=== PATIENT | male | born 1935 | race Caucasian/White ===

== ENCOUNTER 2016-05-13 08:30 | Inpatient (IN) | payer MEDICARE ==
[~2016-05-13] VITALS: Ht 170.2 cm; Wt 78.5 kg
[2016-05-13 09:27] LABS: ALBUMIN 2.3 g/dL (3.4-5.0); ALKALINE PHOSPHATASE 66 U/L (46-116); ALT (SGPT) 18 U/L (10-68); BILIRUBIN - TOTAL 1.05 mg/dL (0.2-1.3); CALC OSMOLALITY 275 mosm/kg (275-300); CALCIUM 8.6 mg/dL (8.5-10.1); CARBON DIOXIDE 19.6 mmol/L (21.0-32.0); CHLORIDE - SERUM 101 mmol/L (98-107); CREATININE - SERUM 1.5 mg/dL (0.6-1.3); GLUCOSE 128 mg/dL (74-106); POTASSIUM - SERUM 4.4 mmol/L (3.5-5.1); PROTEIN - SERUM 6.4 g/dL (6.4-8.2); SODIUM 132 mmol/L (136-145); UREA NITROGEN 39 mg/dL (7-18); eGFR NON AFRICAN AMERICAN 48 mL/min (90-120)
[2016-05-13 09:30] LABS: HEMOGLOBIN 13.3 g/dL (13.5-17.5); MCH 28.1 pg (26.0-34.0); MCHC 33.3 g/dL (31.0-37.0); MCV 84.6 fL (80.0-100.0); MEAN PLATELET VOLUME 9.4 fL (7.4-10.4); PLATELET COUNT 224 10x3/uL (130-400); RBC 4.73 10x6/uL (4.20-6.10); RDW 15.5 % (11.5-14.5); WBC 24.5 10x3/uL (4.8-10.8)
[2016-05-13 09:33] LABS: APPEARANCE CLEAR (CLEAR); BILIRUBIN NEGATIVE (NEGATIVE); COLOR YELLOW (YELLOW); GLUCOSE NEGATIVE (NEGATIVE); KETONE SMALL mg/dL (NEGATIVE); LEUKOCYTE ESTERASE NEGATIVE (NEGATIVE); NITRITE NEGATIVE (NEGATIVE); PROTEIN NEGATIVE (NEGATIVE); UROBILINOGEN NORMAL (NORMAL)
[2016-05-13 09:41] LABS: LYMPHOCYTES 4 % (15-50); MONOCYTES 16 % (2-11); NEUTROPHILS 77 % (40-80); PLATELET ESTIMATE NORMAL
[2016-05-13 09:47] LABS: CREATINE KINASE 247 UL (21-232); PRO BNP 9786 pg/mL (0-450)
[2016-05-13 09:52] LABS: TROPONIN-I 0.386 ng/mL (0.000-0.060)
[2016-05-13 09:53] LABS: CKMB 3.3 U/L (0.0-3.6)
--- NOTE | 2016-05-13 12:00 | NUR ---
PATIENT RECEIVED TO FLOOR FROM ER VIA STRETCHER. TRANSFERRED SELF BED. POSITIONED FOR COMFORT. FAMILY AT BEDSIDE. ORIENTED TO ROOM. RT AT BEDSIDE TO PLACE PATIENT ON BIPAP ORDERED. SIDE RAILS UP X1. BED IN LOW POSITION. CALL LIGHT IN REACH.
[2016-05-13] MEDS ORDERED: PREDNISONE10 MG PO (12:02)
[2016-05-13] MEDS ORDERED: OMEPRAZOLE40 MG PO (12:02)
[2016-05-13] MEDS ORDERED: KLOR-CON M2020 MEQ PO (12:02)
[2016-05-13] MEDS ORDERED: VITAMIN D5000 UNIT PO (12:03)
[2016-05-13] MEDS ORDERED: MAG-OX 400 MG400 MG PO (12:03)
[2016-05-13] MEDS ORDERED: BAYER CHEWABLE81 MG PO (12:03)
[2016-05-13] MEDS ORDERED: MUCUS RELIEF400 MG PO (12:03)
[2016-05-13] MEDS ORDERED: AMOXICILLIN500 M1 PO (12:05)
--- NOTE | 2016-05-13 12:33 | NUR ---
PATIENT ALERT IN BED. NO SIGNS OF DISTRESS NOTED. BIPAP IN USE. FAMILY AT BEDSIDE. IVF AND IV ABX INITIATED PER ORDER. IV TO LEFT WRIST PATENT. FLUSHES EASY. NO REDNESS OR INFLAMMATION NOTED TO SITE.
[2016-05-13 13:32] VITALS: BP 112/60; BMI 27.1
[2016-05-13 13:40] VITALS: BP 112/60
[2016-05-13] MEDS ORDERED: SYNTHROID PO (13:41)
--- NOTE | 2016-05-13 14:32 | NUR ---
ALERT IN BED. NO SIGNS OF DISTRESS NOTED. FAMILY PRESENT. SIDE RAILS UP X2. BED IN LOW POSITION. CALL LIGHT IN REACH.
[2016-05-13 16:07] VITALS: BP 128/70
[2016-05-13 16:07] LABS: CREATINE KINASE 247 UL (21-232)
[2016-05-13 16:11] LABS: CKMB 4.1 U/L (0.0-3.6)
--- NOTE | 2016-05-13 17:57 | NUR ---
PATIENT ALERT IN [place] POSITION VISITING WITH FAMILY. NO SIGNS OF DISTRESS NOTED. BIPAP IN PLACED. SIDE RAILS UP X1. BED IN LOW POSITION. CALL LIGHT IN REACH.
[2016-05-13 23:00] VITALS: BP 102/55
--- NOTE | 2016-05-14 04:20 | NUR ---
AWAKE AT THIS TIME. PT LYING SUPINE IN HIGH WILKES'S POSTION WITH BI-PAP ON. DENIES NEEDS, CALL LIGHT IN REACH. WILL CONTINUE WITH PLAN OF CARE.
--- NOTE | 2016-05-14 07:36 | NUR ---
AWAKE ALERT COLOR ADQ SKIN WARM AND DRY BI-PAP IN PLACE AT PRESENT HOB UP FOR COMFORT STATES HE FEELS BETT TODAY IV CONT AT 50CC/HR/IVAC/LDH.
[2016-05-14 07:46] LABS: ANION GAP 14.4 mmol/L (8-16); BASOPHILS 0.1 % (0.0-2.0); CALCIUM 8.5 mg/dL (8.5-10.1); CREATININE - SERUM 1.6 mg/dL (0.6-1.3); EOSINOPHILS 0 % (0-7); HEMATOCRIT 38.8 % (42.0-54.0); HEMOGLOBIN 12.7 g/dL (13.5-17.5); IMMATURE GRANULOCYTES 0.5 % (0-5); LYMPHOCYTES 2.4 % (15-50); MCH 27.5 pg (26.0-34.0); MCHC 32.7 g/dL (31.0-37.0); MEAN PLATELET VOLUME 9.7 fL (7.4-10.4); MONOCYTES 3.4 % (2-11); NEUTROPHILS 93.6 % (40-80); PLATELET COUNT 254 10x3/uL (130-400); POTASSIUM - SERUM 3.4 mmol/L (3.5-5.1); RBC 4.62 10x6/uL (4.20-6.10); RDW 15.5 % (11.5-14.5); WBC 22.3 10x3/uL (4.8-10.8)
[2016-05-14 08:21] VITALS: BP 111/62
--- NOTE | 2016-05-14 08:33 | HP ---
PATIENT: TONI CABRERA MEDICAL RECORD: [id number] ACCOUNT: [id number] LOCATION:D.MS [id number] : 33 ADMISSION DATE: 05/13/16 HISTORY AND PHYSICAL EXAMINATION DATE OF ADMISSION: 05/13/2016 CHIEF COMPLAINT: Shortness of breath, increased fatigue, and lethargy. HISTORY OF PRESENT ILLNESS: The patient is an 80-year-old gentleman with a longstanding history of COPD. The patient has coronary artery bypass graft approximately 5 years ago as well. For over the past several days, the patient has had increasing shortness of breath. He has had increased fatigue, presents to the Emergency Room via EMS for shortness of breath. PAST MEDICAL HISTORY: Significant that he has had a history of having COPD. He has also had coronary artery bypass grafting. The patient had a history of having hyperlipidemia, hypothyroidism, dependent edema and psoriasis. FAMILY HISTORY: Mother and father both at 57 years of age. Father of heart attack. Mother of lung cancer. SOCIAL HISTORY: The patient was born and raised in [facility]. He is currently . He has worked at a [employer] for over 37 years. He is currently retired. ALLERGIES: CODEINE WELL BENADRYL. MEDICATIONS: Included ____ p.o. t.i.d. for sinus infection given by Dr. Kim last week, aspirin 81 mg once a day, levothyroxine 50 mcg once a day, omeprazole 40 mg once a day, KCl 20 mEq 1 p.o. t.i.d., prednisone 10 mg 1 p.o. every day, ranitidine 300 mg 1 p.o. every day, vitamin D3 of 5000 international units once a day. REVIEW OF SYSTEMS: CONSTITUTIONAL: He denies any headaches, seizures, or syncope. Denies change in visual or auditory acuity. PULMONARY: He has increasing shortness of breath with some sputum production. CARDIOVASCULAR: He has had no chest pain, palpitation, PND or orthopnea. GASTROINTESTINAL: No chronic nausea, vomiting, melena or hematochezia. GENITOURINARY: No urgency, frequency, or dysuria. PHYSICAL EXAMINATION: GENERAL: A very ill male. VITAL SIGNS: Temperature is 97, his pulse 110, respirations were 40, his blood pressure is 142/72, his O2 sat was 88%. HEENT: His head is normocephalic. No lesions. Ears: TMs clear. Eyes: Pupils equal, round and reactive to light. His extraocular movements are intact. His nasal cavity, oral cavity and oropharynx clear. NECK: Supple. There is no adenopathy. HEART: Slightly tachycardic. LUNGS: He has decreased breath sounds in all montoya. No rales, rhonchi or wheezes can be appreciated. ABDOMEN: Soft, bowel sounds positive. LOWER EXTREMITIES: Had no edema. HISTORY AND PHYSICAL [id number] MERGED WITH [facility] DATA: The patient had a chest x-ray showing possible bilateral infiltrates. He had an EKG. EKG showed sinus tachycardia, occasional PVC, nonspecific ST-T wave changes were noted. His white count was elevated at 24.5. His hemoglobin was 13.3, hematocrit 40, and platelets were 224. Urinalysis is unremarkable. Glucose 128, BUN is 39, creatinine is 1.1. His sodium is 132, potassium 4.4, chloride is 101, CO2 is 19.6. His liver function unremarkable. The patient had influenza A and B, which were negative. Arterial blood gas showed pH 7.463, pCO2 is 24.7, his pO2 is 74, bicarbonate was 17, base excess -4.3. Troponin is slightly elevated at 0.386. ProBNP was elevated at 9786. CK was 247. ASSESSMENT: Shortness of breath, chronic obstructive pulmonary disease exacerbation, pneumonia, and history of coronary artery disease. PLAN: The patient is a DNR. He will be continued on BiPAP. Pulmonary consultation as well as cardiology consultation will be obtained. The patient will be placed on appropriate antibiotics as well as O2 supplementation and updraft therapy. TRANSINT:[id number] Voice Confirmation ID: [id number] DOCUMENT ID: [id number] CLIFF SANDHU MD at 0833 CC: [id number] DICTATION DATE: 05/13/16 1029 CABLE CUTTER AND SWAGER: 05/13/16 1318 [place] [address]
--- NOTE | 2016-05-14 09:15 | NUR ---
MEDS GIVEN ORDERED SHANNON WELL AT BEDSIDE.
[2016-05-14] MEDS ORDERED: SYNTHROID50 MCG PO (10:10)
--- NOTE | 2016-05-14 11:44 | NUR ---
AT [facility] ENIES ANY NEEDS AT THIS TIME.
[2016-05-14 12:45] VITALS: BP 125/69
--- NOTE | 2016-05-14 14:04 | NUR ---
Patient Name: TONI CABRERA Admission Status: ER Accout number: [id number] Admission Date: 05-13-2016 : 1935 Admission Diagnosis: Attending: FRANKLIN Current LOS: 1 Anticipated DC Date: 05-17-2016 Planned Disposition: Home Primary Insurance: MEDICARE A & B Discharge Planning Comments: CM MET WITH PATIENT REGARDING D/C NEEDS AND PLANS. PATIENT STATED HE LIVES WITH HIS (LISETTE) AND SHE WILL TRANSPORT HIM HOME AT DISCHARGE. PATIENT STATED HE HAS 3 STEPS W/RAILS TO ENTER HOME AND NO STAIRS ONCE INSIDE. PATIENT STATED HE IS INDEPENDENT WITH HIS CARE AND HAS A WALKER, SHOWER CHAIR, OXYGEN, AND NEBULIZER IF NEEDED AT HOME. PATIENTS PCP IS DR. WALDRON AND PHARMACY IS [facility]. PATIENT DOES NOT WANT HOME HEALTH AT THIS TIME. CM WILL CONTINUE TO FOLLOW PATIENT WITH D/C NEEDS AND PLANS. PCP DR. VANITA [facility]- [phone] [place] () [phone] Veneer Taper: Tamie Gay Is the patient Alert and Oriented? Yes 0 * How many steps to enter\exit or inside your home? 3 W/RAILS 0 * PCP DR. WALDRON 0 * Pharmacy [facility] 0 * Preadmission Environment Home with Family 0 * ADLs Independent 0 * Equipment Nebulizer Oxygen Shower Chair Walker 0 * List name and contact numbers for known caregivers / representatives who currently or will assist patient after discharge: LISETTE () [phone] * Community resources currently utilized None 0 * Additional services required to return to the preadmission environment? Yes 0 * Can the patient safely return to the preadmission environment? Yes 0 * Has this patient been hospitalized within the prior 30 days at any hospital? No 0 Grand Total: 0
--- NOTE | 2016-05-14 15:29 | NUR ---
CONT ON AT 02 AT 5L N/C AT PRESENT SHANNON WELL AT PRESENT.
[2016-05-14 15:34] VITALS: Ht 170.2 cm; Wt 78.5 kg
[2016-05-14 16:30] VITALS: BP 128/62
--- NOTE | 2016-05-14 17:47 | NUR ---
IV FLUIDS DCD PER ORDER 02 REMAINS AT 5L N/C AT PRESENT DENIES ANY NEEDS AT PRESENT.
[2016-05-14 19:00] VITALS: BP 139/73
--- NOTE | 2016-05-14 20:23 | NUR ---
PATIENT RECIEVING NEBULIZER. AWAKE, A&Ox3, DENIES PAIN. ON TELEMETRY. DISTENDED ABD, REPORTS THAT HE DOESN'T AMBULATE. NO NEEDS NOTED AT THIS TIME. BED IN LOWEST LOCKED POSTION, HOB ELEVATED, CALL LIGHT WITHIN REACH.
--- NOTE | 2016-05-14 22:41 | NUR ---
PT LYING SUPINE WITH HOB AT 35 DEGREES. OXYGEN ON AND RESPIRATIONS EVEN AND NON LABORED. DENIES NEEDS. CALL LIGHT IN REACH AND BED IN LOW POSITION AND LOCKED. WILL CONTINUE WITH PLAN OF CARE.
[2016-05-15] VITALS: BP 125/60
[2016-05-15 04:00] VITALS: BP 107/61
[2016-05-15 05:31] LABS: BASOPHILS 0 % (0.0-2.0); EOSINOPHILS 0 % (0-7); HEMATOCRIT 36.9 % (42.0-54.0); IMMATURE GRANULOCYTES 0.5 % (0-5); LYMPHOCYTES 2.4 % (15-50); MCH 27.2 pg (26.0-34.0); MCHC 32.5 g/dL (31.0-37.0); MCV 83.7 fL (80.0-100.0); MONOCYTES 3.7 % (2-11); NEUTROPHILS 93.4 % (40-80); PLATELET COUNT 287 10x3/uL (130-400); RBC 4.41 10x6/uL (4.20-6.10); RDW 15.5 % (11.5-14.5); WBC 21.2 10x3/uL (4.8-10.8)
[2016-05-15 05:37] LABS: ANION GAP 14.4 mmol/L (8-16); CALCIUM 8.7 mg/dL (8.5-10.1); CARBON DIOXIDE 28.6 mmol/L (21.0-32.0); CREATININE - SERUM 1.9 mg/dL (0.6-1.3)
--- NOTE | 2016-05-15 07:53 | NUR ---
Received patient lying in bed, alert and oriented times three, verbalized name and . Oxygen in place at 5L, respirations easy. Lungs clear. Verbalized no complaints. Telemetry in place SR at 89. Taught on fall safety to call for assist to bathroom, box alarm in place and functioning properly.
[2016-05-15 08:30] VITALS: BP 108/55
[2016-05-15 11:52] VITALS: BP 115/53
--- NOTE | 2016-05-15 13:36 | NUR ---
Sitting up in bed, oxygen in place. Respirations easy. Family at bedside. No distress.
[2016-05-15 15:55] VITALS: BP 122/68
--- NOTE | 2016-05-15 20:00 | NUR ---
ASSESSMENT COMPLETED, NO ACUTE DISTRESS NOTED, DENIES PAIN OR DISCOMFORT, SR'S UP X2, CL IN REACH, WILL MONITOR
[2016-05-15 21:18] VITALS: BP 135/69
--- NOTE | 2016-05-15 22:00 | NUR ---
MEDS GIVEN PER MAR, SHANNON WELL, DENIES FURTHER NEEDS, SR'S UP X2, CL IN REACH
--- NOTE | 2016-05-16 05:34 | NUR ---
MEDS GIVEN PER MAR, SHANNON WELL, DENIES PAIN OR NEEDS, SR'S UP , CL IN REACH
[2016-05-16 05:42] LABS: BASOPHILS 0 % (0.0-2.0); EOSINOPHILS 0 % (0-7); HEMATOCRIT 37.5 % (42.0-54.0); HEMOGLOBIN 11.7 g/dL (13.5-17.5); IMMATURE GRANULOCYTES 0.4 % (0-5); LYMPHOCYTES 2.5 % (15-50); MCH 26.8 pg (26.0-34.0); MCHC 31.2 g/dL (31.0-37.0); MEAN PLATELET VOLUME 9.7 fL (7.4-10.4); MONOCYTES 4.3 % (2-11); NEUTROPHILS 92.8 % (40-80); PLATELET COUNT 291 10x3/uL (130-400); RBC 4.37 10x6/uL (4.20-6.10); RDW 15.6 % (11.5-14.5); WBC 17.4 10x3/uL (4.8-10.8)
[2016-05-16 05:49] LABS: MCV 85.8 fL (80.0-100.0)
[2016-05-16 05:52] LABS: ALBUMIN 2.1 g/dL (3.4-5.0); ANION GAP 13.3 mmol/L (8-16); BILIRUBIN - TOTAL 0.4 mg/dL (0.2-1.3); CALCIUM 8.1 mg/dL (8.5-10.1); CARBON DIOXIDE 28.5 mmol/L (21.0-32.0); CREATININE - SERUM 1.7 mg/dL (0.6-1.3); MAGNESIUM - SERUM 2.3 mg/dL (1.8-2.4); PHOSPHOROUS 4.3 mg/dL (2.5-4.9); POTASSIUM - SERUM 3.8 mmol/L (3.5-5.1); PROTEIN - SERUM 5.7 g/dL (6.4-8.2)
[2016-05-16 08:19] VITALS: BP 114/58
--- NOTE | 2016-05-16 08:38 | NUR ---
PATIENT IS SITTING UP IN BED EATING BREAKFAST. PATIENT IS ALERT AND ORIENTED. ON 6L NC. I HAVE INFORMED RT ABOUT IT. STATED THAT SHE WILL MOVE TO A OXYMIZER. BED IS LOW CALL LIGHT IS IN REACH. DENIES ANY PAIN OR DISCOMFORT. NO DISTESS NOTED
[2016-05-16 12:27] VITALS: BP 118/63
--- NOTE | 2016-05-16 14:46 | NUR ---
NUTRITION MONITORING & EVAL CHART REVIEWED, PT VISIT. TOLERATING AHA DIET. 50% INTAKE RECENT MEALS. WILL CONTINUE TO PROVIDE DIET, MONITOR PO INTAKE. RD FOLLOWING
[2016-05-16 16:18] VITALS: BP 130/66
--- NOTE | 2016-05-16 18:44 | NUR ---
PATIENT HAS BEEN ALERT AND ORIENTED. PATIENT WAS SWITCH TO AN OXYMIZER. IV RESITED.
[2016-05-16 19:00] VITALS: BP 122/59
--- NOTE | 2016-05-16 19:55 | NUR ---
ASSESSMENT COMPLETED, NO ACUTE DISTRESS NOTED, FAMILY IN ROOM, DENIES PAIN OR NEEDS AT THIS TIME, SR'S UP X2, CL IN REACH, WILL MONITOR
--- NOTE | 2016-05-16 21:04 | NUR ---
MEDS GIVEN PER MAR, SHANNON WELL, SCD'S PLACED, DENIES NEEDS, SR'S UP X2, CL IN REACH
[2016-05-17] VITALS: BP 116/65
--- NOTE | 2016-05-17 01:33 | NUR ---
LYING IN BED AWAKE, DENIES NEEDS, SR'S UP X2, HIGH FLOW NC IN PLACE, CL IN REACH
--- NOTE | 2016-05-17 03:20 | NUR ---
CONTINUES TO REST WITH EYES CLOSED, HIGH FLOW NC IN PLACE, CL IN REACH
[2016-05-17 04:00] VITALS: BP 120/68
--- NOTE | 2016-05-17 05:14 | NUR ---
MEDS GIVEN PER MAR, SHANNON WELL, SCD'S RECONNECTED, DENIES NEEDS, CL IN REACH
[2016-05-17 05:26] LABS: BASOPHILS 0.1 % (0.0-2.0); EOSINOPHILS 0 % (0-7); HEMATOCRIT 40.1 % (42.0-54.0); HEMOGLOBIN 12.2 g/dL (13.5-17.5); IMMATURE GRANULOCYTES 0.8 % (0-5); LYMPHOCYTES 3.1 % (15-50); MCH 26.6 pg (26.0-34.0); MCHC 30.4 g/dL (31.0-37.0); MCV 87.4 fL (80.0-100.0); MEAN PLATELET VOLUME 9.7 fL (7.4-10.4); MONOCYTES 3.4 % (2-11); NEUTROPHILS 92.6 % (40-80); PLATELET COUNT 295 10x3/uL (130-400); RBC 4.59 10x6/uL (4.20-6.10); RDW 15.7 % (11.5-14.5); WBC 17.2 10x3/uL (4.8-10.8)
[2016-05-17 06:02] LABS: ANION GAP 13.9 mmol/L (8-16); CALCIUM 8.7 mg/dL (8.5-10.1); CARBON DIOXIDE 29.7 mmol/L (21.0-32.0); CREATININE - SERUM 1.6 mg/dL (0.6-1.3); MAGNESIUM - SERUM 2.4 mg/dL (1.8-2.4); POTASSIUM - SERUM 4.6 mmol/L (3.5-5.1)
--- NOTE | 2016-05-17 07:51 | NUR ---
AWAKE ALERT COLOR ADQ SKIN WARM AND DRY AT PRESENT DENIES ANY NEEDS AT PRESENT 02 CONT AT 7L OXISER AT PRESENT.
[2016-05-17 07:57] VITALS: BP 127/68
--- NOTE | 2016-05-17 09:45 | NUR ---
AMB TO B/R WITH PT HAD LARGE STOOL WITH BLOOD NOTED STATES HE DOES THIS HAS HEMMORIDS THEY BLEED FROM TIME TO TIME.
--- NOTE | 2016-05-17 11:13 | NUR ---
WATCHING TV QUIETLY AT PRESENT.
--- NOTE | 2016-05-17 12:15 | NUR ---
TAKING LUNCH WELL AND RET AT PRESENT.
[2016-05-17 12:31] VITALS: BP 120/67
--- NOTE | 2016-05-17 14:17 | NUR ---
REHAB PRESCREENING Rehab referral received and chart reviewed. Mr. Crane is a great candidate for IRF. He continues to require high flow O2 but has been weaned today to 6 lpm. Nursing states he has an elevated white count that is being monitored today. Hopefully he will tolerate a continued O2 titration today. Rehab would like to see him at a lower flow before he attempts 3 hours of therapy per day. We will plan on bringing him to rehab tomorrow if O2 needs decrease and his phyisician feels he is ready for discharge. Thank you for this referral! Belem Medina, HUB CUTTER APPRENTICE PD[facility]
--- NOTE | 2016-05-17 14:44 | EC ---
PATIENT:TONI CABRERA DATE OF SERVICE: 05/13/16 SEX: M MEDICAL RECORD: [id number] DATE OF : 33 LOCATION:D.MS Damon222 AGE OF PATIENT: 80 ADMISSION DATE: 05/13/16 REFERRING PHYSICIAN: INTERPRETING PHYSICIAN: NICOLE PERSON MD ECHOCARDIOGRAM REPORT ECHO CHARGES 4 ECHO COMPLETE CLINICAL DIAGNOSIS: CMP ECHOCARDIOGRAPHIC MEASUREMENTS (adult normal given) AC root (d.<3.7cm) 3.4 LV Septum d (<1.2 cm> 1.2 Valve Excursion 2.1 LV Septum (systole) 1.6 Left Atria (s.<4.0cm> 3.6 LVPW d(<1.2cm) 1.5 RV (d.<2.3cm) 2.8 LVPW (sytole) 1.9 LV diastole(<5.6CM) 4.1 MV E-F(>70mm/sec) LV systole 2.4 LVOT Diameter 2.1 MV exc.(>10mm) Est.ejection fraction (50-75%) Pericardial Effusion N DOPPLER: LVIT A 86.0 E 72.0 LA RVSP 62.0 LVOT 102 AOP1/2T Asc. Ao 130 RVOT 60.0 RA PA 90.0 AV Gradient Peak 6.8 AV Mean 3.6 AV Area 2.3 MV Gradient Peak 4.3 MV Mean 2.0 MV Area COMMENTS: Frameman: Linda LANEOE Wedding Florist:Griselda Sykes TAPE# PACS DATE OF SERVICE: 05/14/2016 Adequate 2D echo, color flow and spectral Doppler, and M-mode. Borderline LVH. LV internal dimension is normal. Wall motion is normal. EF is greater than 55%. Aortic valve sclerosis without stenosis by Doppler interrogation. The left atrium is normal at 3.6 cm. Mitral valve shows no prolapse, no significant MR. Right-sided chambers appears upper limits of normal and mildly dilated. Moderate TR. RV systolic pressure is estimated greater than or equal to 62 mmHg via the continuity equation. ECHOCARDIOGRAM REPORT [id number] TONI CABRERA TRANSINT:[id number] Voice Confirmation ID: [id number] DOCUMENT ID: [id number] 05/17/2016 Edited to correct date of service, dmm. NICOLE PERSON MD at 1444 CC: [id number] DICTATION DATE: 05/15/16 1528 CLAM SHOVEL OPERATOR: 05/16/16 0013 ADM IN [facility] [address] [id number]
--- NOTE | 2016-05-17 14:45 | CN ---
PATIENT NAME:TONI CABRERA MEDICAL RECORD: [id number] : 33 LOCATION:D.MS Damon2224 ADMIT DATE: 05/13/16 ACCOUNT: [id number] CONSULTING PHYSICIAN: NICOLE PERSON MD REFERRING PHYSICIAN: CLIFF SANDHU MD DATE OF CONSULTATION: 05/13/2016 Cardiology Consultation HISTORY OF PRESENT ILLNESS: A 80-year-old gentleman with a known history of coronary artery disease, status post coronary bypass grafting, has a history of obstructive pulmonary disease. ____ 3-4 day history of increasing dyspnea, shortness of breath ____ orthopnea, PND. He was admitted, started on BiPAP antibiotic therapy, has improved nicely. He was noted to have elevated cardiac enzymes. We were asked to see him concerning his cardiovascular status. PAST MEDICAL HISTORY: Include: 1. History of hypertension. 2. Coronary artery disease with coronary bypass grafting, targets unknown. 3. Dyslipidemia. 4. Hypothyroidism, on replacement. 5. Obstructive pulmonary disease. SOCIAL HISTORY: [place] [facility] [place] He is a nonsmoker. He typically is able to take care of his ADLs. Retired. ALLERGIES: SULFA, CODEINE, AND BENADRYL. MEDICATIONS: Prior to admission, typically include aspirin 81 mg p.o. every day, potassium supplementation ____ 40 every day, Synthroid 50 mcg every day, prednisone 10 every day. REVIEW OF SYSTEMS: The patient reports easy bruising but reports no swollen glands. The patient reports no fever, no night sweats, no significant weight gain, no significant weight loss. No significant exercise tolerance. The patient reports no dry eyes, no irritation, no vision change. Patient reports no difficulty hearing and no ear pain. Patient reports no frequent nose bleeds or nose and sinus problems. Patient reports on arm pain on exertion. No shortness of breath while lying down. No history of heart murmur. Patient reports no cough, no wheezing or coughing up blood. Patient reports no abdominal pain, no vomiting. Normal appetite. No diarrhea and not vomiting blood. No nausea and no constipation. Patient reports no incontinence. No difficulty urinating. No hematuria. No increased frequency. Patient reports no muscle aches. No weakness, no arthralgias, no back pain. No swelling of the extremities. Patient reports no abnormal mole, no jaundice, no rashes. Reports no loss of consciousness. No weakness and no numbness. No seizures, dizziness, or headaches. The patient reports no depression, no sleep disturbance, feeling safe in a relationship and no alcohol abuse. Patient reports on fatigue. Reports no runny nose or sinus pressure. No itching, no hives, and no frequent sneezing. PHYSICAL EXAMINATION: GENERAL: Pleasant gentleman in no acute distress. VITAL SIGNS: Blood pressure 111/62, pulse 77 and regular. HEENT: Normocephalic and atraumatic. CONSULT REPORT [id number] TONI CABRERA NECK: No JVD or bruit. HEART: Regular. A II/ systolic ejection murmur. LUNGS: Lopez clear. ABDOMEN: Soft and nontender. EXTREMITIES: Pulses 2+ with no edema. NEUROLOGIC: Grossly intact. DIAGNOSTIC DATA: ECG shows left ventricular block with no acute ST-T changes. IMPRESSION: Suspect demand ischemia in lieu of upper respiratory tract infection. We will check echocardiographic study for any focal wall motion abnormality. Further recommendations based on clinical course. TRANSINT:[id number] Voice Confirmation ID: [id number] DOCUMENT ID: [id number] NICOLE PERSON MD at 1445 CC: [id number] DICTATION DATE: 05/14/16 1114 APPLICATION PROJECT LEADER: 05/14/16 1427 ADM IN [place] [id number] [id number]
[2016-05-17 15:57] VITALS: BP 135/77
--- NOTE | 2016-05-17 16:00 | NUR ---
AT BEDSIDE DENIES ANY NEEDS AT THIS TIME.
--- NOTE | 2016-05-17 17:45 | NUR ---
STATUS REMAINS UNCHGD AT PRESENT
[2016-05-17 19:00] VITALS: BP 121/63
[2016-05-18] VITALS: BP 128/68
[2016-05-18 04:00] VITALS: BP 122/67
--- NOTE | 2016-05-18 04:06 | NUR ---
PT BEING TREATED FOR PNEUMONIA. SLEEPING AT THIS TIME. OXIMIZER @ 5L. RESP DEEP, EVEN. NO DISTRESS NOTED.
[2016-05-18 05:35] LABS: BASOPHILS 0.2 % (0.0-2.0); EOSINOPHILS 0 % (0-7); HEMATOCRIT 42.5 % (42.0-54.0); HEMOGLOBIN 13.3 g/dL (13.5-17.5); IMMATURE GRANULOCYTES 2.1 % (0-5); LYMPHOCYTES 4.6 % (15-50); MCH 27.3 pg (26.0-34.0); MCHC 31.3 g/dL (31.0-37.0); MCV 87.1 fL (80.0-100.0); MEAN PLATELET VOLUME 9.7 fL (7.4-10.4); MONOCYTES 3.5 % (2-11); NEUTROPHILS 89.6 % (40-80); PLATELET COUNT 313 10x3/uL (130-400); RBC 4.88 10x6/uL (4.20-6.10); RDW 15.6 % (11.5-14.5); WBC 24.7 10x3/uL (4.8-10.8)
[2016-05-18 06:02] LABS: ANION GAP 13.7 mmol/L (8-16); CALCIUM 9.1 mg/dL (8.5-10.1); CARBON DIOXIDE 30.7 mmol/L (21.0-32.0); CREATININE - SERUM 1.7 mg/dL (0.6-1.3); POTASSIUM - SERUM 4.4 mmol/L (3.5-5.1)
[2016-05-18] MEDS ORDERED: ROCEPHIN 1 GM/D51 G1 IVPB (07:11)
[2016-05-18] MEDS ORDERED: ZITHROMAX250 MG PO (07:11)
[2016-05-18] MEDS ORDERED: FLORAJEN3 CAPS460 MG PO (07:12)
[2016-05-18] MEDS ORDERED: BENZONATATE200 MG PO (07:13)
[2016-05-18] MEDS ORDERED: XOPENEX 1.1.25 MG/3 UPD (07:13)
[2016-05-18] MEDS ORDERED: ATROVENT 0.02%2.5 ML UPD (07:13)
[2016-05-18] MEDS ORDERED: ACETAMINOPHEN325 MG PO (07:13)
[2016-05-18] MEDS ORDERED: LASIX40 MG PO (07:13)
[2016-05-18] MEDS ORDERED: BROVANA15 MCG/2 M INH (07:13)
[2016-05-18] MEDS ORDERED: PULMICORT0.5 MG/21 UPD (07:13)
[2016-05-18] MEDS ORDERED: PREDNISONE20 MG PO (07:13)
--- NOTE | 2016-05-18 07:15 | NUR ---
SLEEPING QUIETLY AT PRESENT RESP EVEN AND UNLABORED AT PRESENT SL PATENT IN LEFT UPPER ARM 02 DOWN TO 4L OXIMESIER SAT 95%.
[2016-05-18 07:41] VITALS: BP 108/56
--- NOTE | 2016-05-18 09:15 | NUR ---
MEDS GIVEN SHANNON WELL AT PRESENT DENIES ANY NEEDS AT THIS TIME.
--- NOTE | 2016-05-18 11:00 | NUR ---
QUIET IN ROOM AT PRESENT 02 CONT AT 4L OXISMER AT PRESENT SHANNON WELL RESP EVEN AND SLIGHTLY LABORED AT PRESENT.
--- NOTE | 2016-05-18 12:00 | NUR ---
QUIET IN ROOM AT PRESENT DENIES ANY NEEDS AT PRESENT N/C NOTED.
--- NOTE | 2016-05-18 14:20 | NUR ---
AT BEDSIDE DENIES ANY NEEDS AT THIS TIME.
--- NOTE | 2016-05-18 14:52 | NUR ---
CM REASSESSMENT NOTE: PATIENT IS DISCHARGING TO IP REHAB TODAY
--- NOTE | 2016-05-18 14:59 | NUR ---
TO REHAB VIA W/C AT SIDE REPORT CALLED TO AUGUSTIN MARTINEZ ON REHAB.
--- NOTE | 2016-06-06 09:12 | CN ---
PATIENT NAME:TONI CRANE MEDICAL RECORD: [id number] : 33 LOCATION:[id number] ADMIT DATE: 05/13/16 ACCOUNT: [id number] CONSULTING PHYSICIAN: HENRY PEÑA MD REFERRING PHYSICIAN: CLIFF SANDHU MD DATE OF CONSULTATION: 05/13/2016 Pulmonary Consultation CONSULT REQUESTING PHYSICIAN: Cliff Sandhu MD REASON FOR CONSULTATION: Acute hypoxic respiratory failure, pulmonary edema, possible underlying pneumonia, and COPD exacerbation. HISTORY OF PRESENT ILLNESS: Mr. Crane is an 80-year-old gentleman who is sick for more than a week. He has worsening shortness of breath with mild exertion. The patient refused to come to the hospital, but he was brought in by the family today for worsening shortness of breath. Chest radiograph shows bilateral infiltrate, pulmonary edema and also there was a significant leukocytosis. The patient says he is coughing with white yellow colored sputum production. There are no night sweats. There is no associated nausea or vomiting. No diarrhea. REVIEW OF SYSTEMS: Mainly in the history of present illness. PAST MEDICAL HISTORY: 1. COPD. 2. Coronary artery disease. 3. He has some skin problem. 4. Peptic ulcer disease with gastroesophageal reflux disease. 5. Hypothyroidism. PAST SURGICAL HISTORY: He had multiple cardiac catheterizations and stent placement in the past. ALLERGIES: HE IS ALLERGIC TO SULFA, CODEINE, AND DIPHENHYDRAMINE. PRESENT MEDICATIONS: He is on Synthroid at home, prednisone 10 mg a day, magnesium, Klor-Con, omeprazole, and vitamin D. He is also on aspirin. PERSONAL AND SOCIAL HISTORY: The patient smoked for more than 50 years, 1 pack per day. He quit 12-13 years ago. He is a nondrinker. FAMILY HISTORY: Noncontributory. PHYSICAL EXAMINATION: GENERAL: Now, the patient is lying comfortably. He is in acute respiratory distress. He is on BiPAP. VITAL SIGNS: The blood pressure is 142/73, pulse is 88, SpO2 was 100% on 100% nonrebreather. HEENT: Conjunctivae are pink. Sclerae nonicteric. NECK: Supple, no JVD. CHEST: There are bilateral crackles. Wheeze on forceful expiration. HEART: Rhythm regular, normal sound, no murmur. ABDOMEN: Soft. Bowel sounds present. No hepatosplenomegaly. RECTAL: Deferred. CONSULT REPORT [id number] TONI CRANE EXTREMITIES: No cyanosis, no clubbing, no pedal edema. SKIN: Warm, normal turgor. CENTRAL NERVOUS SYSTEM: The patient is awake and alert. There is no obvious cranial nerve abnormality. The gait was not tested. IMPRESSION: 1. Acute hypoxic respiratory failure. 2. Metabolic acidosis with over compensatory respiratory alkalosis. 3. Acute myocardial infarction. 4. Pulmonary edema. 5. Congestive heart failure, possible systolic dysfunction. 6. History of hypothyroidism. RECOMMENDATION: 1. Continue Zithromax, Rocephin, Xopenex and ipratropium nebulizer, Brovana and budesonide nebulizer. Start on methylprednisolone IV. Start him on Lasix IV. 2. Start on bicarbonate drip. I will discontinue normal saline drip. 3. BiPAP as required. PROGNOSIS: Guarded. The patient is DNR per patient request. Dr. Sandhu, once again, thank you for involving me in the care of Mr. Crane. TRANSINT:[id number] Voice Confirmation ID: [id number] DOCUMENT ID: [id number] HENRY PEÑA MD at 0912 CC: CLIFF SANDHU MD [id number] DICTATION DATE: 05/13/16 1319 CNA: 05/13/16 1455 DIS IN 05/18/16 [id number] [place] [address]
== END 2016-05-18 15:34 | DRG 189 ==
LOC: D.ER 08:30 → D.MS 10:45 → D.SDCHOLD 10:45 → D.MS 11:16
PROVIDERS: Emergency Medicine; Family Medicine; ADMIT Family Medicine
PROC: 5A09457 Assistance with Respiratory Ventilation, 24-96 Consecutive Hours, Continuous Positive Airway Pressure (ICD-10-PCS; principal; 2016-05-13)
DX: J96.01 Acute respiratory failure with hypoxia (principal); J18.9 Pneumonia, unspecified organism; J44.0 Chronic obstructive pulmonary disease with (acute) lower respiratory infection; I50.20 Unspecified systolic (congestive) heart failure; I24.8 Other forms of acute ischemic heart disease; J98.11 Atelectasis; E87.2 Acidosis; Z95.1 Presence of aortocoronary bypass graft; E78.5 Hyperlipidemia, unspecified; E03.9 Hypothyroidism, unspecified; K21.9 Gastro-esophageal reflux disease without esophagitis; Z66 Do not resuscitate; J84.10 Pulmonary fibrosis, unspecified; I12.9 Hypertensive chronic kidney disease with stage 1 through stage 4 chronic kidney disease, or unspecified chronic kidney disease; N18.9 Chronic kidney disease, unspecified

== ENCOUNTER 2016-05-18 15:13 | Inpatient (IN) | payer MEDICARE ==
[~2016-05-18] VITALS: Ht 170.2 cm; Wt 77.1 kg
[~2016-05-18 15:13] MED LIST: ACETAMINOPHEN325 MG PO; AMOXICILLIN500 M1 PO; ATROVENT 0.02%2.5 ML UPD; BAYER CHEWABLE81 MG PO; BENZONATATE200 MG PO; BROVANA15 MCG/2 M INH; FLORAJEN3 CAPS460 MG PO; KLOR-CON M2020 MEQ PO; LASIX40 MG PO; MAG-OX 400 MG400 MG PO; MUCUS RELIEF400 MG PO; OMEPRAZOLE40 MG PO; PREDNISONE10 MG PO; PREDNISONE20 MG PO; PULMICORT0.5 MG/21 UPD; ROCEPHIN 1 GM/D51 G1 IVPB; SYNTHROID PO; SYNTHROID50 MCG PO; VITAMIN D5000 UNIT PO; XOPENEX 1.1.25 MG/3 UPD; ZITHROMAX250 MG PO
--- NOTE | 2016-05-18 17:37 | NUR ---
PT WAS ADMITTED TO REHAB UNIT AROUND 1530. STABLE CONDITION UPON ENTERING THE UNIT. PT'S IS WITH HIM. PT IS ON 4L OXIMYZER. HE IS ALERT AND ORIENTED X 3. LEFT UPPER ARM SALINE LOCK DEVICE PATENT AND SECURE. PT HAS NO COMPLAINTS AT THIS TIME. VITAL SIGNS: TEMP. 97.5, PULSE 84, RESP. 14, B/P 128/59. PT DOES BEAR WT AND LITTLE ASSIST IS NEEDED TO GUIDE. WILL BE MONITORING HIM AND ASSISTING PRN WITH ADL'S.
[2016-05-18 18:43] VITALS: BP 128/59; BMI 26.7
--- NOTE | 2016-05-18 19:25 | NUR ---
PT RESTING IN BED WEARING OXIMIZER AT 4LPM. PT HAS A LEFT UPPER ARM PERIPHERAL IV THAT IS PATENT. PT IS A&OX4 AND DENIES NEEDS AT THIS TIME. BED LOW. CL IN REACH.
[2016-05-18 19:45] VITALS: BP 128/57
--- NOTE | 2016-05-18 21:48 | NUR ---
PT RESTING IN BED, EYES OPEN, DENIES NEEDS. WCTM. BED LOW. CL IN REACH.
--- NOTE | 2016-05-19 01:05 | NUR ---
PT RESTING, EYES CLOSED. BED LOW. CL IN REACH. WCTM.
--- NOTE | 2016-05-19 03:53 | NUR ---
PT RESTING, EYES CLOSED. RR ARE EVEN AND UNLABORED. NO S&S OF DISTRESS NOTED. WCTM. BED LOW. CL IN REACH.
--- NOTE | 2016-05-19 08:00 | NUR ---
SITTING UP IN W/C EATING BREAKFAST. OXIMIZER IN PLACE FOR OXYGEN SUPPORT. DENIES PAIN. SOB AT REST NOTED. LUNG SOUNDS DEMINISHED TO ALL LOBES. NO COUGH NOTED. MIN ASST TO TRANSFER.
--- NOTE | 2016-05-19 11:41 | NUR ---
TALKING TO . SITTING IN W/C. CONT OF B/B.
[2016-05-19 11:49] VITALS: Ht 170.2 cm; Wt 77.1 kg
--- NOTE | 2016-05-19 15:00 | NUR ---
RESTING QUIETLY IN BED. TIRES EASILY EVEN WITH JUST SITTING UP IN CHAIR.
[2016-05-19 15:05] VITALS: BP 125/65
--- NOTE | 2016-05-19 17:51 | NUR ---
SITTING UP IN W/C EATING SUPPER. IN ROOM WITH PT. STILL WEARING OXYMIZER AT 4. HAS SOB WITH MINIMAL EXERTION.
[2016-05-19 22:21] VITALS: BP 121/67
--- NOTE | 2016-05-19 23:22 | NUR ---
PT. IN BED WITH HOB UP FOR COMFORT AND IS WEARING HIS O2 NASAL OXIMIZER. ASSESSMSENT COMPLETED. PT. HAS NO VOICED NEEDS AT THIS TIME AND HIS CALL LIGHT IS WITHIN REACH.
--- NOTE | 2016-05-19 23:53 | NUR ---
PT. IN BED WITH HOB UP FOR COMFORT. EYES CLOSED AND RESP. EVEN WITH O2 OXIMIZER IN PLACE. URINAL ON BEDSIDE TABLE AND CALL LIGHT WITHIN REACH.
--- NOTE | 2016-05-20 05:56 | NUR ---
PT. AWAKENS EASILY FOR HIS MORNING MEDICATION. PT. STATED HE SLEPT GOOD. PT. DENIES ANY NEEDS AT THIS TIME AND CALL LIGHT IS WITHIN HIS REACH.
--- NOTE | 2016-05-20 08:07 | NUR ---
INTRODUCED SELF TO PT, BREAKFAST SERVED, PT STATES ORDERED BISCUIT AND SAUSAGE, CALL KITCHEN, WILL CONTINUE TO MONITOR, CALL LIGHT WITHIN REACH.
[2016-05-20 08:59] VITALS: BP 129/55
--- NOTE | 2016-05-20 10:16 | NUR ---
MORNING MEDICATION GIVEN, PT TOLERATED WELL, NO NEW NEEDS NOTED, WILL CONTINUE TO MONITOR, CALL LIGHT WITHIN REACH.
--- NOTE | 2016-05-20 13:40 | NUR ---
PT SITTING IN WHEELCHAIR EATING LUNCH, FAMILY MEMBER AT SIDE, PT STATES NO NEW NEEDS AT THIS TIME, WILL CONTINUE TO MONITOR, CALL LIGHT WITHIN REACH.
--- NOTE | 2016-05-20 15:24 | NUR ---
THREE OCLOCK MEDICATION GIVEN, PT TOLERATED WELL, PT SITTING IN BED WATCHING TV, PT STATES NO NEW NEEDS AT THIS TIME, WILL CONTINUE TO MONITOR, CALL LIGHT WITHIN REACH.
--- NOTE | 2016-05-20 17:40 | NUR ---
PT SITTING UP IN CHAIR EATING DINNER, FAMILY MEMBER AT SIDE, PT STATES NO NEW NEEDS AT THIS TIME, WILL CONTINUE TO MONITOR, CALL LIGHT WITHIN REACH.
--- NOTE | 2016-05-20 17:51 | NUR ---
RESTING QUIETLY IN BED CALL LIGHT IN REACH
--- NOTE | 2016-05-20 19:25 | NUR ---
PT. IN BED WITH HOB UP FOR COMFORT AND IS WATCHING TV. ASSESSMENT COMPLETED. PT. WEARING HIS OXIMIER O2 AT 4L/MIN. WITHOUT ANY PROBLEMS. PT. DENIES ANY NEEDS AT THIS TIME AND HIS CALL LIGHT IS WITHIN REACH.
[2016-05-20 20:00] VITALS: BP 121/57
--- NOTE | 2016-05-20 23:38 | NUR ---
PT. IN BED WITH HOB UP FOR COMFORT WITH EYES CLOSED AND RESP. EVEN. OXIMIZER ON AT 4L/MIN AND CALL LIGHT IS WITHIN REACH.
[2016-05-21 06:34] LABS: BASOPHILS 0.1 % (0.0-2.0); EOSINOPHILS 0.2 % (0-7); HEMATOCRIT 40.5 % (42.0-54.0); HEMOGLOBIN 12.5 g/dL (13.5-17.5); IMMATURE GRANULOCYTES 3.7 % (0-5); LYMPHOCYTES 8.2 % (15-50); MCHC 30.9 g/dL (31.0-37.0); MCV 87.5 fL (80.0-100.0); MEAN PLATELET VOLUME 9.9 fL (7.4-10.4); MONOCYTES 6.8 % (2-11); PLATELET COUNT 268 10x3/uL (130-400); RBC 4.63 10x6/uL (4.20-6.10); RDW 15.9 % (11.5-14.5); WBC 16.7 10x3/uL (4.8-10.8)
[2016-05-21 06:59] LABS: CALCIUM 8.6 mg/dL (8.5-10.1); CARBON DIOXIDE 28.9 mmol/L (21.0-32.0); CREATININE - SERUM 1.6 mg/dL (0.6-1.3); POTASSIUM - SERUM 3.9 mmol/L (3.5-5.1)
--- NOTE | 2016-05-21 08:00 | NUR ---
PATIENT SITTING UP IN BED TO EAT BREAKFAST. ALERT/ORIENT X4. CALL LIGHT WITHIN PATIENTS REACH.
[2016-05-21 09:42] VITALS: BP 130/67
--- NOTE | 2016-05-21 09:58 | NUR ---
PATIENT IN REHAB ROOM. WORKING WITH PHYSICAL THERAPIST. DENIES ANY PAIN/DISC AT THIS TIME
--- NOTE | 2016-05-21 12:00 | NUR ---
PATIENT HAS VISITORS IN ROOM. VOICES NO NEEDS AT THIS TIME
--- NOTE | 2016-05-21 14:44 | RHP ---
PATIENT: TONI CABRERA MEDICAL RECORD: [id number] ACCOUNT: [id number] [facility] : 33 ADMISSION DATE: 05/18/16 REHABILITATION HISTORY AND PHYSICAL EXAMINATION POST ADMISSION PHYSICIAN EXAMINATION Post-admission Physical Exam and History and Physical ADMITTING DIAGNOSES: Chronic obstructive pulmonary disease myopathy, acute hypoxic respiratory failure, and pulmonary edema. HISTORY OF PRESENT ILLNESS: The patient is an 80-year-old gentleman who was sick for more than a week prior to his family bringing him to the Emergency Room Department. He was experiencing worsening shortness of breath in mild exertion. He refused to come to the hospital, but he was brought in by family for worsening shortness of breath. Chest radiograph showed bilateral infiltrate, pulmonary edema and there was also a significant leukocytosis on admission. The patient says he is coughing with a white yellow colored sputum production. During this hospital course, he was treated with a bronchodilator and DuoNeb treatments, steroids in taper, and antibiotics for leukocytosis. BiPAP was needed for acute hypoxic respiratory failure on high-flow O2. He has been on a bicarbonate drip due to his metabolic acidosis. He is currently extremely weak and debilitated, ambulating only 30 feet with a rolling walker. Prior to this illness, he was independent with ADLs and did daily ____ with his , ambulating without assist. He has diagnosis of COPD induced myopathy and will require intensive inpatient rehabilitation therapy in order to get him to return back to his prior level of functioning and return back home. COMORBIDITIES: Include COPD exacerbation, hypoxia, CHF, coronary artery disease, right pleural effusion, metabolic acidosis with over compensatory respiratory alkalosis, bibasilar infiltrates, leukocytosis, atelectasis, hyperlipidemia, hypothyroidism, hypokalemia, chronic kidney disease, psoriasis, and debility. PAST MEDICAL HISTORY: Significant for COPD, coronary artery disease, cirrhosis, peptic ulcer disease, and hypothyroidism. PAST SURGICAL HISTORY: Includes multiple cardiac catheterizations and stent placements in the past. ALLERGIES: SULFA, CODEINE, AND DIPHENHYDRAMINE. CURRENT MEDICATIONS: He is on a prednisone taper. He is on potassium chloride 20 mEq daily, Protonix 40 mg daily, Mag-Ox 400 mg daily. He is on Zithromax 250 mg daily, vitamin D 5000 units daily, furosemide 20 mg daily, guaifenesin 600 daily, ____ daily, levothyroxine 50 mcg daily. He is on ceftriaxone 1 gram q.24 hours for 3 more doses. Pulmicort 0.5 mg b.i.d., Tessalon Perles 200 mg t.i.d., Brovana 15 mcg b.i.d. and Tylenol 650 mg q.4 hours p.r.n. HABITS: No current alcohol or tobacco use. Does have a history of tobacco use in the past. FAMILY HISTORY: Noncontributory. SOCIAL HISTORY: The patient hopes to return home with his . They live here HISTORY AND PHYSICAL [id number] [place] in [place]. REVIEW OF SYSTEMS: GENERAL: Does complain of weakness. HEENT: Does complain of cold, cough, or congestion. CARDIOVASCULAR: Denies any chest pain. LUNGS: Does complain of shortness of breath at times. PHYSICAL EXAMINATION: VITAL SIGNS: Stable. He is afebrile. GENERAL: Elderly gentleman in no acute distress, alert upon exam. HEENT: Normocephalic and atraumatic. Mucosa moist. NECK: Supple with no lymphadenopathy. LUNGS: Clear at this time. HEART: Regular rate and rhythm. ABDOMEN: Benign. EXTREMITIES: No clubbing, cyanosis or edema. NEUROLOGIC: Intact. ASSESSMENT: This is an 80-year-old gentleman who is admitted to rehab with a working diagnosis of chronic obstructive pulmonary disease induced myopathy. The patient has potential to make improvement. We instituted the following multidisciplinary therapies including to, but not limited to physical, occupational, respiratory, speech, nutritional services, prosthetics and orthotics. Given his complex condition and risk for more complications, rehabilitation services cannot be provided at a low level of care such as a prison facility. PLAN: 1. Admit to [facility] rehab for intensive inpatient therapy to include the following disciplines: A. Physical therapy to improve gait, all transfer skills and bed mobility to a modified independent level. B. Occupational therapy to improve activities of daily living to a modified independent level. C. Case management to assist with discharge planning and placement options. D. Nutrition to assist with nutritional needs. E. Rehabilitation nursing to assist in monitoring the patient's underlying medical conditions and to assist with any type of bowel or bladder management. 2. The patient's current medication and medical care will be continued. 3. The patient will be placed on standard fall precautions. 4. The patient's estimated length of stay is approximately 7-10 days. 5. Discuss this patient during care team staff meeting this week. TRANSINT:[id number] Voice Confirmation ID: [id number] DOCUMENT ID: [id number] HISTORY AND PHYSICAL [id number] DEBORAH,CORAL GRIJALVA MD at 1444 CC: [id number] DICTATION DATE: 05/19/16 1116 WELDING ROBOT OPERATOR: 05/19/16 1155 ADM IN [id number] [place] [address]
--- NOTE | 2016-05-21 16:14 | NUR ---
Pt. has been stable this shift. He denies any pain or discomfort or needs. Alert and oriented x 4. Will continue to observe and assist in any way.
--- NOTE | 2016-05-21 17:26 | NUR ---
PATIENTS IN ROOM. PATIENT ABLE TO TRANSFER FROM WHEELCHAIR ONTO TOILET WITH STANDBY ASST.
[2016-05-21 19:35] VITALS: BP 119/59
--- NOTE | 2016-05-21 19:50 | NUR ---
PT RESTING IN BED WATCHING TV, DENIES NEEDS AT THIS TIME. BED LOW. CL IN REACH. WCTM.
--- NOTE | 2016-05-21 21:51 | NUR ---
PT TOOK HS MEDS WITHOUT DIFFICULYT. PT DENEIS NEEDS AT THIS TIEM. BED LOW. CL IN REACH.
--- NOTE | 2016-05-21 23:58 | NUR ---
PT RESTING, EYES CLOSED. BED LOW. CL IN REACH. WCTM.
--- NOTE | 2016-05-22 06:04 | NUR ---
PT AWAKE AND TOOK AM MEDS WITHOUT DIFFICULTY. ASKED PT IF HE WOULD LIKE TO CHANGED CLOTHES AND PT STATED "I'M FINE WITH WHAT I'M WEARING." PT DENIES NEEDS WCTM. BED LOW. CL IN REACH.
--- NOTE | 2016-05-22 07:25 | NUR ---
PATIENT ALERT/ORIENT X4. AWAKE, SITTING UP IN CHAIR AT BEDSIDE. CALL LIGHT WITHIN REACH. VOICES NO NEEDS AT THIS TIME
[2016-05-22 09:22] VITALS: BP 110/55
--- NOTE | 2016-05-22 09:54 | NUR ---
SALINE LOCK REMOVED FROM LEFT UPPER ARM. NO IV MEDICATIONS OR FLUIDS ORDERED.
--- NOTE | 2016-05-22 13:10 | NUR ---
PATIENT IN REHAB ROOM. WORKING WITH PHYSICAL THERAPIST. DENIES ANY PAIN/DISC AT THIS TIME
--- NOTE | 2016-05-22 15:23 | NUR ---
Pt. is in stable condition this shift. Will be monitoring him throughout this shift. Call light in reach. Dr. Wray rounded this day.
--- NOTE | 2016-05-22 16:55 | NUR ---
PATIENTS IN ROOM WITH PATIENT. PATIENT SITTING UP IN A WHEELCHAIR TO EAT SUPPER.
--- NOTE | 2016-05-22 19:30 | NUR ---
PT LYING IN BED WATCHING TV, DENIES NEEDS. WCTM. BED LOW. CL IN REACH.
[2016-05-22 21:00] VITALS: BP 115/59
--- NOTE | 2016-05-22 21:40 | NUR ---
PT TOOK HS MEDS WITHOUT DIFFICULTY. PT INSISTS ON NOT CALLING TO GET UP TO BR. PT SIGNED A BED ALARM WAIVER. WCTM. BED LOW. CL IN REACH.
--- NOTE | 2016-05-22 23:11 | NUR ---
PT RESTING, EYES CLOSED. BED LOW. CLIN REACH. WCTM.
--- NOTE | 2016-05-23 01:43 | NUR ---
PT RESTING, EYES CLOSED. BED LOW. CL IN REACH. WCTM.
--- NOTE | 2016-05-23 03:52 | NUR ---
PT RESTING, EYES CLOSED. BED LOW. CL IN REACH. WCTM.
[2016-05-23 05:45] LABS: BASOPHILS 0.1 % (0.0-2.0); EOSINOPHILS 0.1 % (0-7); HEMATOCRIT 37.9 % (42.0-54.0); HEMOGLOBIN 12.4 g/dL (13.5-17.5); IMMATURE GRANULOCYTES 1.8 % (0-5); LYMPHOCYTES 6.7 % (15-50); MCH 28.2 pg (26.0-34.0); MCHC 32.7 g/dL (31.0-37.0); MCV 86.1 fL (80.0-100.0); MEAN PLATELET VOLUME 9.9 fL (7.4-10.4); MONOCYTES 6.9 % (2-11); NEUTROPHILS 84.4 % (40-80); PLATELET COUNT 247 10x3/uL (130-400); RDW 15.8 % (11.5-14.5); WBC 17.7 10x3/uL (4.8-10.8)
[2016-05-23 05:58] LABS: CALCIUM 8.1 mg/dL (8.5-10.1); CARBON DIOXIDE 26.6 mmol/L (21.0-32.0); CREATININE - SERUM 1.5 mg/dL (0.6-1.3); POTASSIUM - SERUM 3.6 mmol/L (3.5-5.1)
--- NOTE | 2016-05-23 06:20 | NUR ---
PT TOOK AM MEDS WITHOUT DIFFICULTY AND DENIES NEEDS AT THIS TIME. BED LOW. CL IN REACH.
--- NOTE | 2016-05-23 07:46 | NUR ---
SITTING UP IN BED WITH HOB ABOUT 45 DEGREES.
[2016-05-23 07:53] VITALS: BP 106/43
--- NOTE | 2016-05-23 10:42 | NUR ---
Nutrition Follow Up: Chart reviewed. Diet: Regular PO Intake: 78% (9 meal avg) Wt stable +BM 05/22/16 Labs noted - BUN, Cr elevated Meds: Prednisone, Lasix Pt with good po intake at this time. Will continue to send selective menus and honor food preferences. RD following.
--- NOTE | 2016-05-23 12:00 | NUR ---
PT RESTING IN BED WITH EYES OPEN CALL LIGHT IN REACH NO PROBLEMS WILL MONITER
--- NOTE | 2016-05-23 16:47 | NUR ---
CARE TEAM MEETING: PATIENT TENATIVE DISCHARGE DATE IS 05/31/16. PATIENT HAS WALKER, SHOWER CHAIR, NEBULIZER AND O2 AT HOME. PCP IS DR. WALDRON . WILL CONTINUE TO FOLLOW WITH PATIENT UNTIL DISCHARGED
--- NOTE | 2016-05-23 17:06 | NUR ---
SPOKE WITH PATIENT AND PATIENT IS IN NEED OF BSC, O2, PCP IS DR. WALDRON AND SHE WOULD LIKE DME WITH [facility].
[2016-05-23 20:14] VITALS: BP 124/59
--- NOTE | 2016-05-23 20:57 | NUR ---
RESTING IN BED. ALERT ORIENTED CONVERSANT. DENIES NEEDS. NO ACUTE DISTRESS NOTED. DEMONSTRATED CONCERN FOR ROOM MATES NEEDS.
--- NOTE | 2016-05-24 04:40 | NUR ---
PATIENT AWAKE. DENIES NEEDS. ASSISTED HIM HIGHER UP IN BED FOR COMFORT. ARMED BED ALARM. PATIENT DENIES NEEDS.
--- NOTE | 2016-05-24 05:07 | NUR ---
RESTING IN BED. AROUSES TO VOICE. ALERT ORIENTED CONVERSANT. ADMINISTERED MEDICATION. DENIES NEEDS. NO ACUTE DISTRESS NOTED.
--- NOTE | 2016-05-24 07:05 | NUR ---
RESTING QUIETLY IN BED. CALL LIGHT IN REACH
--- NOTE | 2016-05-24 08:15 | NUR ---
PT RESTING IN BED WITH EYES OPEN CALL LIGHT IN REACH WILL MONITER BREAKFAST SET UP FOR PT
[2016-05-24 08:20] VITALS: BP 107/47
--- NOTE | 2016-05-24 14:27 | NUR ---
PT UP IN WHEELCHAIR IN ROOM TOLERATING WELL WILL MONITER
--- NOTE | 2016-05-24 19:55 | NUR ---
PT. UP IN W/C VISITING WITH HIS . PT. MAKING PLANS FOR HIS SHOWER TONIGHT. STATES SHE WILL CALL BACK IN ABOUT 1 HOUR TO CHECK TO SEE IF PT. IS RESTING YET OR NOT. ASSESSMENT COMPLETED. PT. HAS NO VOICED NEEDS AT THIS TIME AND HAS HIS CALL LIGHT WITHIN REACH.
[2016-05-24 22:54] VITALS: BP 120/62
--- NOTE | 2016-05-25 01:37 | NUR ---
PT. IN BED WITH HOB UP FOR COMFORT WITH EYES CLOSED AND RESP. EVEN. O2 ON AT 3/L MIN VIA N/C. CALL LIGHT WITHIN REACH.
--- NOTE | 2016-05-25 06:27 | NUR ---
PT. HAD AN UNEVENTUAL NIGHT AND SLEPT WITHOUT PROBLEMS. PT. AWAKENS EASILY EVERY TIME I WENT INTO HIS ROOM FOR ROUNDS. PT. HAD NO VOICED C/O OR NEEDS AND HAS HIS CALL LIGHT WITHIN REACH.
[2016-05-25 08:13] LABS: BASOPHILS 0.1 % (0.0-2.0); EOSINOPHILS 0.3 % (0-7); HEMATOCRIT 39.9 % (42.0-54.0); HEMOGLOBIN 12.5 g/dL (13.5-17.5); IMMATURE GRANULOCYTES 1.9 % (0-5); LYMPHOCYTES 5.6 % (15-50); MCH 27.3 pg (26.0-34.0); MCHC 31.3 g/dL (31.0-37.0); MCV 87.1 fL (80.0-100.0); MEAN PLATELET VOLUME 9.6 fL (7.4-10.4); MONOCYTES 8.6 % (2-11); NEUTROPHILS 83.5 % (40-80); PLATELET COUNT 203 10x3/uL (130-400); RBC 4.58 10x6/uL (4.20-6.10); RDW 16.3 % (11.5-14.5); WBC 17.8 10x3/uL (4.8-10.8)
[2016-05-25 08:36] LABS: CALCIUM 8.7 mg/dL (8.5-10.1); CARBON DIOXIDE 28.6 mmol/L (21.0-32.0); CREATININE - SERUM 1.6 mg/dL (0.6-1.3); POTASSIUM - SERUM 3.6 mmol/L (3.5-5.1)
[2016-05-25 10:36] VITALS: BP 107/54
--- NOTE | 2016-05-25 11:00 | NUR ---
SITTING UP IN W/C IN ROOM. ALERT AND ORIENTED. OXYGEN IN PLACE. DENIES INCREASED SOB.
--- NOTE | 2016-05-25 13:03 | NUR ---
SITTING IN W/C IN ROOM WATCHING TV. DENIES NEEDS
--- NOTE | 2016-05-25 19:50 | NUR ---
PT RESTING IN BED WATCHING TV, DENIES NEEDS AT THIS TIME. BED LOW. CL IN [facility].
[2016-05-25 21:37] VITALS: BP 110/52
--- NOTE | 2016-05-25 22:25 | NUR ---
PT TOOK HS MEDS WITHOUT DIFFICULTY. PT DENIES NEEDS AT THIS TIME. BED LOW. CL IN REACH.
--- NOTE | 2016-05-26 00:48 | NUR ---
PT RESTING, EYES CLOSED. BED LOW. CL IN REACH.
--- NOTE | 2016-05-26 04:08 | NUR ---
PT RESTING, EYES CLOSED. BED LOW. CL IN [facility].
[2016-05-26 07:00] VITALS: BP 118/46
--- NOTE | 2016-05-26 08:05 | NUR ---
SITTING UP IN BED DRINKING COFFEE. REFUSED TO EAT MOST OF HER BREAKFAST TRAY THIS MORNING. DENIES INCREASED SOB. OXYGEN IN PLACE AT 3L VIA NC
[2016-05-26 19:30] VITALS: BP 110/45
--- NOTE | 2016-05-26 19:40 | NUR ---
PT RESTING, FAMILY AT BEDSIDE, DENIES NEEDS. WCTM. BED LOW. CL IN REACH.
--- NOTE | 2016-05-26 20:40 | NUR ---
PT HS MEDS GIVEN. PT DENIES NEEDS AT THIS TIME. BED LOW. CL INR EACH.
--- NOTE | 2016-05-26 22:44 | NUR ---
PT RESTING, EYES CLOSED. BED LOW. CLIN REACH. WCTM.
--- NOTE | 2016-05-27 00:31 | NUR ---
PT RESTING, EYES CLOSED. BED LOW. CL IN REACH.
--- NOTE | 2016-05-27 03:00 | NUR ---
PT RESTING, EYES CLOED. BED LOW. CL IN REACH.
--- NOTE | 2016-05-27 06:02 | NUR ---
PT AM MEDS GIVEN, PT DENIES NEEDS AT THIS TIME. BED LOW. CL INR EACH.
[2016-05-27 07:00] VITALS: BP 108/64
--- NOTE | 2016-05-27 08:30 | NUR ---
PT COMPLAINING OF SHORTNESS OF BREATH RESPIRATORY IN ROOM PT 02 UPED TO 6 LITERS AND O2 SAT IS [address] SIMON ORDERED ABGS AND CHEST X-RAY PT STABLE WILL MONITER
--- NOTE | 2016-05-27 12:12 | NUR ---
PT RESTING IN BED WITH EYES OPEN CALL LIGHT IN REACH WILL MONITER AT BEDSIDE
--- NOTE | 2016-05-27 13:57 | NUR ---
Pt. is alert and oriented x 3. was here visiting but has since left and went home. He is stable with no complaints at this time. Breathing is easy and unlabored. No signs of any discomfort or distress. Call light is in reach. Will continue to monitor and give assistance with adl's.
--- NOTE | 2016-05-27 17:00 | NUR ---
DR PEÑA HER TO SEE PT WRITING ORDERS TO DISCHARGE PT TO ACUTE FLOOR WILL FOLLOW THRU WITH DISCHARGE ORDERS
[2016-05-27] MEDS ORDERED: NYSTATIN ORAL SU5 ML PO (17:36)
--- NOTE | 2016-05-27 17:49 | NUR ---
PT RESTING IN BED WITH EYES OPEN CALL LIGHT IN REACH NO PROBLEMS WILL MONITER
--- NOTE | 2016-05-27 17:51 | NUR ---
PT RESTING IN BED WITH EYES OPEN CALL LIGHT IN REACH NO PROBLEMS WILL MONITER
--- NOTE | 2016-05-27 19:59 | NUR ---
PT FAMILY MEMBER PRESENT, CONCERNED AND WANTED TO BE ASSURED THAT PATIENT'S DNR STATUS WILL TRANSITION UPSTAIRS. FOCUSED ASSESSMENT - RESPIRATIONS TACHY, OXYGEN 6 L, AUSCULATED WHEEZING, WILL ADMINISTER 9 PM RESPIRATORY TREATMENT, AND PM MEDICATIONS, PENDING ACCEPTANCE FROM ACUTE CARE UNIT. PT IS PACKED AND READY TO GO. CONTACTED MILK HAULER FOR ASSISTANCE AND REQUESTED COOPERATION FROM ACUTE UNIT TO TAKE PT. PT STATES SOME RELIEF FROM RESPIRATORY TREATMENT.
--- NOTE | 2016-05-27 20:50 | NUR ---
PT DC'D FROM REHAB TO MED SURG FOR ACUTE CARE. ACUTE CARE NURSE MIR CAME DOWN TO TAKE PT UPSTAIRS WITH ASSIST OF BARREL LINE OPERATOR FROM REHAB.
--- NOTE | 2016-06-06 09:13 | CN ---
PATIENT NAME:TONI CRANE MEDICAL RECORD: [id number] : 31 LOCATION:[facility] ADMIT DATE: 05/18/16 ACCOUNT: [id number] CONSULTING PHYSICIAN: HENRY PEÑA MD REFERRING PHYSICIAN: TONO WRAY MD DATE OF CONSULTATION: 05/27/2016 CONSULT REQUESTING PHYSICIAN: Tono Wray MD REASON FOR CONSULTATION: Acute exacerbation of chronic obstructive pulmonary disease, worsening shortness of breath. HISTORY OF PRESENT ILLNESS: Mr. Crane is an 80-year-old gentleman who was admitted a few days ago with acute exacerbation of COPD. The patient was in the rehab. Since this morning, he has worsening shortness of breath. He is coughing. He is wheezing. His oxygen requirement went up from 2 to 4 liters. He also feels very congested in his chest. His voice is hoarse. REVIEW OF SYSTEMS: Mainly in the history of present illness. PAST MEDICAL HISTORY: 1. COPD of severe degree. 2. Coronary artery disease. 3. Peptic ulcer disease. 4. Hypothyroidism. 5. Congestive heart failure. 6. Pulmonary hypertension, recently diagnosed with the pressure at 62. 8. Congestive heart failure with diastolic dysfunction, ejection fraction of 55%. PAST SURGICAL HISTORY: Multiple cardiac catheterizations and stent placement in the past. ALLERGIES: HE IS ALLERGIC TO SULFA, CODEINE AND BENADRYL. PRESENT MEDICATIONS: On [employer] was reviewed. PERSONAL AND SOCIAL HISTORY: He was a smoker for more than [id number]. He quit 12 years ago. He is a nondrinker. FAMILY HISTORY: Noncontributory. PHYSICAL EXAMINATION: GENERAL: Now, the patient is lying comfortably. He is not in acute distress. VITAL SIGNS: The blood pressure is 108/64, pulse 107, respirations 22, temperature is 99.9, SpO2 is 92% on 6 liters nasal cannula. HEENT: Conjunctivae are pink. Sclerae nonicteric. NECK: Supple. No JVD. CHEST: There is prolonged expiration with wheezing. HEART: Rate and rhythm regular, normal sound, no murmur. ABDOMEN: Soft. Bowel sounds present. No hepatosplenomegaly. RECTAL: Deferred. EXTREMITIES: No cyanosis, no clubbing, no pedal edema. SKIN: Warm, normal turgor. CENTRAL NERVOUS SYSTEM: The patient is awake and alert. There are no obvious CONSULT REPORT [id number] [place] cranial nerve abnormality. The gait was not tested. LABORATORY DATA: CBC: WBC 17.8, hemoglobin 12.5, hematocrit 39.9 and the platelet count is 203. Chemistry: Sodium 146, potassium 3.6, BUN is 50 and creatinine 1.6. ABG: The pH is 7.53, pCO2 is 29.7, pO2 is 56, and bicarb is 24.8. IMAGING: Chest radiograph, there are bilateral increased interstitial markings. Compared to the previous chest x-ray, there is not much change. IMPRESSION: 1. Acute exacerbation of chronic obstructive pulmonary disease. 2. Possible underlying pneumonia consistent with hospital-acquired pneumonia. 3. Qsejr-mb-nlaakxr hypoxic respiratory failure. 4. Congestive heart failure with diastolic dysfunction with ejection fraction of 55%. 5. Severe pulmonary hypertension of 62. 6. Chronic kidney disease. 7. Coronary artery disease, recent acute myocardial infarction. 10. Pulmonary edema, possible interstitial pneumonitis. RECOMMENDATION: 1. I will start him on methylprednisolone IV, Levaquin 500 mg IV q.24 hours, cefepime 1 gram IV q.8 hourly, Brovana and budesonide nebulizer b.i.d., albuterol and ipratropium nebulizer q.4 hourly and increase the Lasix to 20 mg IV q.12 hours. 2. Check the BNP. 3. Follow up labs and chest radiograph in the morning. I would recommend to transfer the patient to the medical floor. TRANSINT:[id number] Voice Confirmation ID: [id number] DOCUMENT ID: [id number] HENRY PEÑA MD at 0913 CC: TONO WRAY MD [id number] DICTATION DATE: 05/27/16 171 [employer]LECT[employer] OPERATOR: 05/27/162 DIS IN 05/27/16 [facility] [address] [place] [id number]
--- NOTE | 2016-07-09 07:26 | DS ---
PATIENT:TONI CABRERA :31 MEDICAL RECORD: [id number] DISCHARGE SUMMARY ADMISSION DATE: 05/18/16 DISCHARGE DATE: 05/27/16 This is a discharge dated 05/27/2016 from inpatient rehab. PRIMARY DIAGNOSES: Decreased functional ability and ability to provide activities of daily living secondary to chronic obstructive pulmonary disease myopathy. SECONDARY DIAGNOSES: 1. Chronic obstructive pulmonary disease exacerbation with acute bronchitis. 2. Pulmonary hypertension. 3. Pulmonary edema. 4. Cirrhosis. 5. Peptic ulcer disease. 6. Hypokalemia. 7. Hypomagnesemia. 8. Hypothyroidism. 9. Pneumonia, community-acquired. 10. Acute hypoxic respiratory failure. 11. Congestive heart failure. 12. Coronary artery disease. 13. Hyperlipidemia. 14. Chronic kidney disease. 15. Psoriasis. CONSULTS THIS HOSPITALIZATION: Pulmonary with Dr. Bailey. HOSPITAL COURSE: Full H&P is located elsewhere on the chart on this 80-year-old male who was admitted to inpatient rehab for physical therapy and occupational therapy to improve gait, transfer skills, bed mobility, and activities of daily living to a modified independent level. He was evaluated by PT and OT and their plans of care were followed. He required intermediate care for observation and assessment and medication administration. He continued on nebulized medications for COPD with supplemental oxygen to keep saturations greater than 90%. He received azithromycin and Rocephin for antibiotic coverage for community-acquired pneumonia. He was cooperative with therapies, progressing towards goals. Case management was involved for discharge planning. He developed some worsening shortness of breath and increased oxygen requirements. Pulmonary was consulted. He was seen by Dr. Bailey, who adjusted antibiotics and was started on IV steroids with recommendations for readmission to the [facility]. He was transferred to that facility on 05/27/2016. DISCHARGE MEDICATIONS: As per discharge medication reconciliation. DISCHARGE DISPOSITION: The patient is discharged to the acute hospital for higher level of care. He will be followed by pulmonary and primary care in the acute facility. He will continue his current diet and level of activity. TRANSINT:[id number] Voice Confirmation ID: [id number] DOCUMENT ID: [id number] Dictated By: KHADAR GRIDER I have interviewed/examined the above patient and agree with these documented DISCHARGE SUMMARY REPORT [id number] TONI CABRERA findings. CORAL SIMON MD at 0726 at 0726 CC: [id number] DICTATION DATE: 07/08/16 1321 LABORER LANDSCAPE: 07/08/16 1402 DIS IN 05/27/16 [facility] [address] [place] [address]
== END 2016-05-27 20:50 | disposition short-term general hospital (02) | DRG 91 ==
LOC: D.REHAB 15:13
PROVIDERS: ADMIT Emergency Medicine
DX: G72.89 Other specified myopathies (principal); J96.01 Acute respiratory failure with hypoxia; J81.1 Chronic pulmonary edema; J90 Pleural effusion, not elsewhere classified; E87.4 Mixed disorder of acid-base balance; J98.11 Atelectasis; J44.1 Chronic obstructive pulmonary disease with (acute) exacerbation; I50.20 Unspecified systolic (congestive) heart failure; I50.9 Heart failure, unspecified; I25.10 Atherosclerotic heart disease of native coronary artery without angina pectoris; D72.829 Elevated white blood cell count, unspecified; E78.5 Hyperlipidemia, unspecified; E03.9 Hypothyroidism, unspecified; E87.6 Hypokalemia; N18.9 Chronic kidney disease, unspecified; L40.9 Psoriasis, unspecified; R53.81 Other malaise; Z66 Do not resuscitate

== ENCOUNTER 2016-05-27 21:09 | Inpatient (IN) | payer MEDICARE ==
[~2016-05-27] VITALS: Ht 170.2 cm; Wt 74.8 kg
[~2016-05-27 21:09] MED LIST changes: +NYSTATIN ORAL SU5 ML PO
[2016-05-27 23:21] VITALS: BP 108/57; BMI 25.9
[2016-05-28 07:53] LABS: BASOPHILS 0.1 % (0.0-2.0); EOSINOPHILS 0.4 % (0-7); HEMATOCRIT 38.5 % (42.0-54.0); HEMOGLOBIN 12.4 g/dL (13.5-17.5); LYMPHOCYTES 4.8 % (15-50); MCH 27.6 pg (26.0-34.0); MCHC 32.2 g/dL (31.0-37.0); MCV 85.7 fL (80.0-100.0); MEAN PLATELET VOLUME 9.6 fL (7.4-10.4); NEUTROPHILS 85.7 % (40-80); RBC 4.49 10x6/uL (4.20-6.10); RDW 16.9 % (11.5-14.5); WBC 13.8 10x3/uL (4.8-10.8)
[2016-05-28 08:00] LABS: PLATELET COUNT 118 10x3/uL (130-400)
[2016-05-28 08:23] LABS: ALBUMIN 2.4 g/dL (3.4-5.0); ANION GAP 11.1 mmol/L (8-16); BILIRUBIN - TOTAL 0.83 mg/dL (0.2-1.3); CALCIUM 8.5 mg/dL (8.5-10.1); CARBON DIOXIDE 28.4 mmol/L (21.0-32.0); CREATININE - SERUM 1.6 mg/dL (0.6-1.3); MAGNESIUM - SERUM 1.8 mg/dL (1.8-2.4); POTASSIUM - SERUM 3.5 mmol/L (3.5-5.1); PROTEIN - SERUM 5.7 g/dL (6.4-8.2)
--- NOTE | 2016-05-28 09:00 | NUR ---
CHEST FILM CHANGED TO 1 VIEW BECAUSE PATIENT TO WEAK AND BREATHLESS TO STAND FOR XRAY 2 VIEWS
[2016-05-28 10:20] VITALS: BP 115/49
[2016-05-28 14:06] VITALS: Ht 170.2 cm; Wt 74.8 kg
[2016-05-28 16:58] VITALS: BP 102/57
--- NOTE | 2016-05-28 20:05 | NUR ---
PATIENT IN SEMI-FOWLERS POSITION. BROUGHT PATIENT A CUP OF WATER PER HIS REQUEST.
[2016-05-28 21:00] VITALS: BP 114/66
[2016-05-29 01:00] VITALS: BP 122/60
[2016-05-29 05:00] VITALS: BP 130/52
[2016-05-29 06:30] LABS: BASOPHILS 0 % (0.0-2.0); EOSINOPHILS 0 % (0-7); HEMATOCRIT 41.1 % (42.0-54.0); HEMOGLOBIN 13.2 g/dL (13.5-17.5); IMMATURE GRANULOCYTES 0.5 % (0-5); LYMPHOCYTES 1.8 % (15-50); MCH 27.1 pg (26.0-34.0); MCHC 32.1 g/dL (31.0-37.0); MCV 84.4 fL (80.0-100.0); MEAN PLATELET VOLUME 9.8 fL (7.4-10.4); MONOCYTES 3.3 % (2-11); NEUTROPHILS 94.4 % (40-80); PLATELET COUNT 111 10x3/uL (130-400); RBC 4.87 10x6/uL (4.20-6.10); RDW 16.7 % (11.5-14.5); WBC 16.9 10x3/uL (4.8-10.8)
[2016-05-29 06:54] LABS: ALBUMIN 2.5 g/dL (3.4-5.0); ANION GAP 14.5 mmol/L (8-16); BILIRUBIN - TOTAL 0.9 mg/dL (0.2-1.3); CALCIUM 8.6 mg/dL (8.5-10.1); CARBON DIOXIDE 25.1 mmol/L (21.0-32.0); CREATININE - SERUM 1.8 mg/dL (0.6-1.3); MAGNESIUM - SERUM 2.1 mg/dL (1.8-2.4); POTASSIUM - SERUM 3.6 mmol/L (3.5-5.1); PROTEIN - SERUM 6.2 g/dL (6.4-8.2)
[2016-05-29 08:22] VITALS: BP 124/55
--- NOTE | 2016-05-29 09:00 | NUR ---
ASSESSMENT PER FLOW SHEET.PT WITHOUT DISTRESS.CALL LIGHT IN REACH
--- NOTE | 2016-05-29 09:07 | NUR ---
Patient Name: TONI CABRERA Admission Status: Elective Accout number: [id number] Admission Date: 05-27-2016 : 1935 Admission Diagnosis: Attending: RANJAN Current LOS: 2 Anticipated DC Date: 06-01-2016 Planned Disposition: Home Primary Insurance: MEDICARE A & B Discharge Planning Comments: CM MET WITH PATIENT REGARDING D/C NEEDS AND PLANS. PATIENT STATES HE LIVES WITH HIS SPOUSE (LISETTE) AND SHE WILL DRIVE HIM HOME AT DISCHARGE. PATIENT STATED THERE ARE 4 STEPS W/RAILS TO ENTER HIS HOME AND NO STAIRS INSIDE. PATIENTS PCP IS DR. WALDRON AND PHARMACY IS [facility]. HELPS HIM WITH HIS BATH AND SOMETIMES HAS TO HELP DRESS HIM PER PATIENT. PATIENTS IS BUYING HIM A WALKER, AND BS COMMODE. PATIENT DOES WANT HOME HEALTH BUT WANTS TO WAIT UNTIL HIS IS HERE. CM WILL CONTINUE TO FOLLOW PATIENT WITH D/C NEEDS AND PLANS. PCP DR. VAN[facility]- [phone] L[place] () [phone] [address] [place]: Tamie Gay Is the patient Alert and Oriented? Yes 0 * How many steps to enter\exit or inside your home? 4 W/RAILS 0 * PCP DR. WALDRON 0 * Pharmacy [facility] 0 * Preadmission Environment Home with Family 0 * ADLs Partial Dependent 0 * Partial ADLs (Assistance needed) Bathing Dressing 0 * Equipment Bedside Commode Walker 0 * List name and contact numbers for known caregivers / representatives who currently or will assist patient after discharge: LISETTE (SPOUSE) [phone] 0 * Community resources currently utilized None 0 * Additional services required to return to the preadmission environment? Yes 0 * Can the patient safely return to the preadmission environment? Yes 0 * Has this patient been hospitalized within the prior 30 days at any hospital? No 0 Grand Total: 0
[2016-05-29 11:47] VITALS: BP 107/64
--- NOTE | 2016-05-29 12:30 | NUR ---
FAMILY AT SIDE,WITHOUT DISTRESS.
[2016-05-29 16:21] VITALS: BP 106/61
[2016-05-29 19:00] VITALS: BP 111/63
--- NOTE | 2016-05-29 19:33 | NUR ---
REMAINS WITHOUT NEEDS,WITHOUT DISTRESS,CONT PLAN OF CARE
--- NOTE | 2016-05-29 19:45 | NUR ---
PATIENT ON NEBULIZER TREATMENT. PATIENT STATED HE DOES NOT NEED ANYTHING AT THIS TIME.
[2016-05-30 04:00] VITALS: BP 108/60
[2016-05-30 05:37] LABS: HEMATOCRIT 41.1 % (42.0-54.0); HEMOGLOBIN 13.1 g/dL (13.5-17.5); MCH 27.3 pg (26.0-34.0); MCHC 31.9 g/dL (31.0-37.0); MCV 85.6 fL (80.0-100.0); MEAN PLATELET VOLUME 10.2 fL (7.4-10.4); PLATELET COUNT 130 10x3/uL (130-400); RDW 16.8 % (11.5-14.5); WBC 23.6 10x3/uL (4.8-10.8)
[2016-05-30 05:48] LABS: ALBUMIN 2.4 g/dL (3.4-5.0); ANION GAP 13.5 mmol/L (8-16); BILIRUBIN - TOTAL 0.7 mg/dL (0.2-1.3); CALCIUM 8.4 mg/dL (8.5-10.1); CARBON DIOXIDE 28.6 mmol/L (21.0-32.0); CREATININE - SERUM 2.2 mg/dL (0.6-1.3); MAGNESIUM - SERUM 2.1 mg/dL (1.8-2.4); POTASSIUM - SERUM 4.1 mmol/L (3.5-5.1); PROTEIN - SERUM 6.1 g/dL (6.4-8.2)
[2016-05-30 07:36] LABS: LYMPHOCYTES 1 % (15-50); NEUTROPHILS 95 % (40-80)
[2016-05-30 07:37] LABS: PLATELET ESTIMATE DECREASED
[2016-05-30 08:24] VITALS: BP 108/58
[2016-05-30 12:43] VITALS: BP 102/59
--- NOTE | 2016-05-30 14:33 | NUR ---
NUTRITION MONITORING & EVAL CHART REVIEWED. PT VISIT. PT TOLERATING REG DIET. FAMILY PROVIDED LUNCH FOR PT TODAY. RD FOLLOWING
[2016-05-30 16:21] VITALS: BP 113/59
[2016-05-30 19:00] VITALS: BP 111/63
--- NOTE | 2016-05-30 19:39 | NUR ---
REC'D.IN BED EYES CLOSED. RESP. LABORED.02 6L NC.MONITOR SHOWING SINUS TACH HR 107. WILL CONTINUE TO MONITOR RESP. STATUS AND FOLLOW CURRENT PLAN OF CARE.
[2016-05-31] VITALS: BP 100/61
[2016-05-31 04:00] VITALS: BP 101/57
--- NOTE | 2016-05-31 04:00 | NUR ---
RN NOTE: PT RESTING QUIETLY IN SEMI WILEKS'S POSITION WITH UNLABORED BREATHING. CALL LIGHT WITHIN REACH.
[2016-05-31 05:56] LABS: BASOPHILS 0.1 % (0.0-2.0); EOSINOPHILS 0 % (0-7); HEMATOCRIT 43.8 % (42.0-54.0); IMMATURE GRANULOCYTES 0.7 % (0-5); LYMPHOCYTES 2.1 % (15-50); MCH 27.5 pg (26.0-34.0); MCV 86.1 fL (80.0-100.0); MONOCYTES 4.2 % (2-11); NEUTROPHILS 92.9 % (40-80); PLATELET COUNT 114 10x3/uL (130-400); RBC 5.09 10x6/uL (4.20-6.10); RDW 17.2 % (11.5-14.5); WBC 25.3 10x3/uL (4.8-10.8)
[2016-05-31 06:17] LABS: ALBUMIN 2.6 g/dL (3.4-5.0); BILIRUBIN - TOTAL 0.53 mg/dL (0.2-1.3); CALCIUM 9.6 mg/dL (8.5-10.1); CARBON DIOXIDE 25.8 mmol/L (21.0-32.0); CREATININE - SERUM 2.4 mg/dL (0.6-1.3); MAGNESIUM - SERUM 2.4 mg/dL (1.8-2.4); PROTEIN - SERUM 6.5 g/dL (6.4-8.2)
[2016-05-31 06:18] LABS: POTASSIUM - SERUM 4.8 mmol/L (3.5-5.1)
--- NOTE | 2016-05-31 07:00 | NUR ---
REPORT RECIEVED ASSUMED CARE. PATIENT IN BED WITH IV INTACT. NO COMPLAINTS. CALL LIGHTW ITHIN REACH.
[2016-05-31 08:08] VITALS: BP 99/55
[2016-05-31 12:31] VITALS: BP 124/66
[2016-05-31 16:00] VITALS: BP 116/57
--- NOTE | 2016-05-31 18:43 | NUR ---
PATIENT IN BED WITH NO COMPLAINTS. OXIMIZER ON AT 5 ML. IV INTACT. FAMILY AT BEDSIDE. CALL LIGHT WITHIN REACH.
--- NOTE | 2016-05-31 20:11 | NUR ---
AWAKE ALERT,NO DISTRESS NOTED. OXIMIZER ON AT 4 1/2 L, BILATERAL LUNGS SOUNDS WIHT OCCASIONAL WHEEZING NOTED.NO COMPLIANTS.CL IN REACH.
[2016-05-31 22:41] VITALS: BP 108/62
--- NOTE | 2016-06-01 03:30 | NUR ---
PT RESTING QUIETLY, EYES CLOSED. RESP UNLABORED. NO DISTRESS NOTED. WILL CONTINUE TO MONITOR.
[2016-06-01 05:00] VITALS: BP 109/62
[2016-06-01 05:05] LABS: BASOPHILS 0.1 % (0.0-2.0); EOSINOPHILS 0 % (0-7); IMMATURE GRANULOCYTES 0.7 % (0-5); LYMPHOCYTES 2.9 % (15-50); MCH 27.9 pg (26.0-34.0); MCHC 32.5 g/dL (31.0-37.0); MCV 85.8 fL (80.0-100.0); MEAN PLATELET VOLUME 10.1 fL (7.4-10.4); MONOCYTES 1.8 % (2-11); NEUTROPHILS 94.5 % (40-80); PLATELET COUNT 105 10x3/uL (130-400); RBC 4.66 10x6/uL (4.20-6.10); RDW 17.2 % (11.5-14.5); WBC 23.1 10x3/uL (4.8-10.8)
--- NOTE | 2016-06-01 06:40 | NUR ---
NO CHANGE IN ASSESSMENT. CL IN REACH.
[2016-06-01 07:58] LABS: ALBUMIN 2.5 g/dL (3.4-5.0); ANION GAP 16.3 mmol/L (8-16); BILIRUBIN - TOTAL 0.64 mg/dL (0.2-1.3); CALCIUM 8.9 mg/dL (8.5-10.1); CARBON DIOXIDE 24.7 mmol/L (21.0-32.0); CREATININE - SERUM 2.1 mg/dL (0.6-1.3); MAGNESIUM - SERUM 2.4 mg/dL (1.8-2.4); PROTEIN - SERUM 5.9 g/dL (6.4-8.2)
[2016-06-01 08:31] VITALS: BP 110/55
--- NOTE | 2016-06-01 10:56 | NUR ---
DC REASSESSMENT NOTE: PATIENT WILL D/C HOME TODAY WITH [facility] BY AMBULANCE. [facility] HAS PLANNED DME DELIVERY AT HOME AROUND 1PM AND WOULD LIKE AMBULANCE CALLED BETWEEN 2-3PM AWARE OF D/C PLAN
[2016-06-01 11:36] VITALS: BP 114/59
--- NOTE | 2016-06-01 15:22 | NUR ---
D/C IV WITH CATH INTACT. DISCHARGE INSTRUCTIONS COMPLETED WITH PATIENT. PATIENT DENIES QUESTIONS AND VERBALIZED UNDERSTANDING.
--- NOTE | 2016-06-01 15:23 | NUR ---
SPOKE WITH PATIENT'S , SHE SAID ALL THE EQUIPMENT HAS ARRIVED AND IS SET UP, EXCEPT FOR THE MATTRESS. SHE SAID SHE WILL CALL SOON THE MATTRESS ARRIVES AND IS SET UP.
[2016-06-01 15:30] VITALS: BP 135/71
--- NOTE | 2016-06-01 16:15 | NUR ---
SPOKE WITH PATIENT'S SHE SAID EVERYTHING IS READY. CALLED [facility], NOTIFIED THEM THAT I AM CALLING AMBULANCE. THEY SAID THEY WILL SEND A NURSE TO HIS HOUSE. CALLED [facility].
--- NOTE | 2016-06-01 16:40 | EC ---
PATIENT:TONI CABRERA DATE OF SERVICE: 05/27/16 SEX: M MEDICAL RECORD: [id number] DATE OF : [birth year] LOCATION:[facility] AGE OF PATIENT: 80 ADMISSION DATE: 05/27/16 REFERRING PHYSICIAN: INTERPRETING PHYSICIAN: MAURICE GOULD MD ECHOCARDIOGRAM REPORT ECHO CHARGES 5 ECHO LIMITED CLINICAL DIAGNOSIS: SOB REASSESS EF ECHOCARDIOGRAPHIC MEASUREMENTS (adult normal given) AC root (d.<3.7cm) 3.4 LV Septum d (<1.2 cm> Valve Excursion 2.4 LV Septum (systole) Left Atria (s.<4.0cm> LVPW d(<1.2cm) RV (d.<2.3cm) LVPW (sytole) LV diastole(<5.6CM) 2.9 MV E-F(>70mm/sec) 1.8 LV systole LVOT Diameter MV exc.(>10mm) Est.ejection fraction (50-75%) Pericardial Effusion N DOPPLER: LVIT A E LA RVSP LVOT AOP1/2T Asc. Ao RVOT RA PA AV Gradient Peak AV Mean AV Area MV Gradient Peak MV Mean MV Area COMMENTS: Tube Rebuilder: 2 VALERY HANSON Parent Aide:1 Dr. Gould TAPE# PACS DATE OF SERVICE: 05/29/2016 Limited Echocardiogram for ejection fraction FINDINGS: 1. Left ventricular chamber size is within normal limits. Left ventricular systolic function appears to be normal. Overall ejection fraction 55%. TRANSINT:[id number] Voice Confirmation ID: [id number] DOCUMENT ID: [id number] ECHOCARDIOGRAM REPORT [id number] TONI CABRERA JEFFREY MD at 1640 CC: [id number] DICTATION DATE: 05/29/16 1200 ETHNIC STUDIES PROFESSOR: 05/29/16 1220 [place] [address]
--- NOTE | 2016-06-01 16:50 | NUR ---
PATIENT LEFT VIA STRETCHER WITH [employer].
== END 2016-06-01 17:07 | disposition home health service (06) | DRG 189 ==
LOC: D.MS 21:09
PROVIDERS: Internal Medicine Pulmonary Disease; ADMIT Family Medicine
DX: J96.01 Acute respiratory failure with hypoxia (principal); J18.9 Pneumonia, unspecified organism; J44.0 Chronic obstructive pulmonary disease with (acute) lower respiratory infection; I13.0 Hypertensive heart and chronic kidney disease with heart failure and stage 1 through stage 4 chronic kidney disease, or unspecified chronic kidney disease; J44.1 Chronic obstructive pulmonary disease with (acute) exacerbation; J98.11 Atelectasis; N18.9 Chronic kidney disease, unspecified; I50.9 Heart failure, unspecified; R53.81 Other malaise; Z66 Do not resuscitate; E03.9 Hypothyroidism, unspecified; E78.5 Hyperlipidemia, unspecified; Z95.1 Presence of aortocoronary bypass graft